=== PATIENT | female | born 1970 | race Caucasian/White ===

== ENCOUNTER → 2017-10-28 15:27 | Outpatient (CLI) | payer OTHER, SELFPAY | PROVIDERS: Family Provider Internal Medicine; PCP Internal Medicine; Visit Provider Nurse Practitioner Family | DX: R19.00 Intra-abdominal and pelvic swelling, mass and lump, unspecified site (principal); Z85.820 Personal history of malignant melanoma of skin | CPT/HCPCS: 76882 ==

== ENCOUNTER → 2019-03-08 10:03 | Outpatient (CLI) | payer OTHER, SELFPAY ==
--- NOTE | 2019-03-08 10:06 | VDLE_ITS ---
Reason For Study: RLE PAIN/SWELLING RIGHT CFV is compressible, spontaneous, phasic, competent and demonstrates normal augmentation. FV is compressible, spontaneous, phasic, competent and demonstrates normal augmentation. POP V is compressible, spontaneous, phasic, competent and demonstrates normal augmentation. T/P Trunk is compressible. PTV is compressible. RT PerV is compressible. RT GSV AND ASV X 2 are dilated and non compressible S/P EVLA. Procedure Exam performed in department. The exam was diagnostic. The study was technically difficult. PT had difficulty tolerating compressions. A preliminary report was called and/or faxed to Dr. Katz. Interpretation Summary Deep veins of the right lower extremity are patent and compressible segmentally. There is no evidence of right lower extremity deep vein thrombosis. Valvular competence appears intact within the proximal deep venous system on the right . The right great saphenous vein and two accessory saphenous veins are occluded, consistent with a recent endothermal ablation procedure. Ordering Physician: Darinel Katz Referring Physician: Laureen Salazar Performed By: Belinda Us, RDCS, RVT
== END ==
PROVIDERS: Family Provider Internal Medicine; PCP Internal Medicine; Referring Provider Surgery; Visit Provider Surgery
DX: M79.606 Pain in leg, unspecified (principal); M79.89 Other specified soft tissue disorders
CPT/HCPCS: 93971

== ENCOUNTER → 2019-11-08 15:48 | Outpatient (CLI) | payer OTHER, SELFPAY ==
--- NOTE | 2019-11-08 16:04 | VDLE_ITS ---
Reason For Study: Pain RIGHT LEFT CFV is compressible, spontaneous, phasic, GSV is normal. competent and demonstrates normal CFV is compressible, spontaneous, phasic, augmentation. competent, and demonstrates normal Procedure augmentation. Exam performed in department. FV is compressible, spontaneous, phasic, A preliminary report was called and/or faxed competent and demonstrates normal to Katheryn. augmentation. POP V is compressible, spontaneous, phasic, competent and demonstrates normal augmentation. T/P Trunk is compressible. PTV is compressible. LT PerV is compressible. Acute deep vein thrombosis is noted in the left gastroc vein. Thrombus filled varicose veins noted throughout the left mid calf. Interpretation Summary Acute deep vein thrombosis is noted in the left gastrocnemius vein. The remainder of the left lower extremity deep venous system is patent and compressible. Valvular competence appears intact within the proximal deep venous system on the left . The left great saphenous vein appears patent and compressible segmentally. Acute superficial thrombophlebitis is noted involving superficial varicosities in the left mid-calf. Ordering Physician: Laureen Salazar Referring Physician: Laureen Salazar Performed By: Yael Champion RVT
== END ==
PROVIDERS: PCP Internal Medicine; Referring Provider Internal Medicine; Visit Provider Internal Medicine
DX: M79.662 Pain in left lower leg (principal)
CPT/HCPCS: 93971

== ENCOUNTER → 2019-12-01 15:37 | Outpatient (CLI) | payer OTHER, SELFPAY ==
--- NOTE | 2019-12-01 15:55 | VDLE_ITS ---
Reason For Study: F/U DVT Procedure LEFT Exam performed in department. GSV is normal. Compared to 11/08/2019. CFV is compressible, spontaneous, phasic, A preliminary report was called and/or faxed competent, and demonstrates normal to Marie. augmentation. FV is compressible, spontaneous, phasic, competent and demonstrates normal augmentation. POP V is compressible, spontaneous, phasic, competent and demonstrates normal augmentation. T/P Trunk is compressible. PTV is compressible. LT PerV is compressible. Left Gastroc V is partially compressible with flow noted. Varicose veins in the mid calf are compressible. Interpretation Summary Acute deep vein thrombosis is noted in the left gastrocnemius vein. The remainder of the left lower extremity deep venous system is patent and compressible. Valvular competence appears intact within the proximal deep venous system on the left . The left great saphenous vein appears patent and compressible segmentally. There has been improvement in the left lower extremity deep vein thrombosis and superficial thrombophlebitis since a prior study on 11/08/2019. Ordering Physician: Laureen Salazar Referring Physician: Laureen Salazar Performed By: Yael Champion RVT
== END ==
PROVIDERS: PCP Internal Medicine; Referring Provider Internal Medicine; Visit Provider Internal Medicine
DX: I82.462 Acute embolism and thrombosis of left calf muscular vein (principal)
CPT/HCPCS: 93971

== ENCOUNTER → 2020-01-07 16:14 | Outpatient (CLI) | payer OTHER, SELFPAY ==
--- NOTE | 2020-01-07 16:28 | RAD_ITS ---
STUDY: X-RAY - CERVICAL SPINE REASON FOR EXAM: Female, 49 years old. Neck pain since yesterday, no known injury. TECHNIQUE: 5 view(s) of the cervical spine were obtained. COMPARISON: None FINDINGS: Normal anterior atlantoaxial articulation. Normal odontoid process. There is straightening of the normal cervical lordosis. Normal vertebral bodies and endplates. Normal disc space heights. Normal visualized intervertebral neuroforamina. The soft tissue structures are unremarkable. RAD/Cerv Spine 4 or 5 Views IMPRESSION: 1. No foraminal stenosis. 2. Straightening of the normal cervical lordosis could be positional artifact or related to muscular spasm. Electronically Signed: Gordo Cotton MD (Brooks) at 16:23 EDT , Service support ,
== END ==
PROVIDERS: PCP Internal Medicine; Referring Provider Nurse Practitioner; Visit Provider Nurse Practitioner
DX: M54.2 Cervicalgia (principal)
CPT/HCPCS: 72050

== ENCOUNTER → 2020-05-03 13:49 | Outpatient (CLI) | payer OTHER, SELFPAY ==
--- NOTE | 2020-05-03 13:59 | VDLE_ITS ---
Reason For Study: DVT Procedure LEFT This is a venous duplex using B-mode, color GSV is normal. flow and spectral Doppler. CFV is compressible, spontaneous, phasic, Exam performed in department. competent, and demonstrates normal A preliminary report was called and/or faxed augmentation. to Marie. FV is compressible, spontaneous, phasic, competent and demonstrates normal augmentation. POP V is compressible, spontaneous, phasic, competent and demonstrates normal augmentation. T/P Trunk is compressible. PTV is compressible. LT PerV is compressible. Lt Gastroc vein is compressible as compared to 12/01/2019. Interpretation Summary Deep veins of the left lower extremity are patent and compressible segmentally. There is no evidence of left lower extremity deep vein thrombosis. Valvular competence appears intact within the proximal deep venous system on the left . The left great saphenous vein appears patent and compressible segmentally. There has been resolution of the acute deep vein thrombosis in the left gastrocnemius vein which was noted in prior studies. Ordering Physician: Laureen Salazar Referring Physician: Laureen Salazar Performed By: Yael Champion RVT
== END ==
PROVIDERS: PCP Internal Medicine; Referring Provider Internal Medicine; Visit Provider Internal Medicine
DX: Z86.718 Personal history of other venous thrombosis and embolism (principal)
CPT/HCPCS: 93971

== ENCOUNTER → 2021-10-05 | Outpatient (CLI) | payer OTHER, SELFPAY ==
--- NOTE | 2021-10-05 | IMM_PTH ---
PATIENT: RAYMUNDO JOHN LOC: [facility] U#:[id number] AGE/SX: 50/F ROOM: RE10/05/[address]: Dr. Moncho Chu MD : 1970 BED: DIS: 10/05/2021 SPEC #: [id number] RECD: 10/08/21 11:09 STATUS: MATIAS REQ #: [id number] GEE: 10/05/21 00:[address]: Moncho Chu DEPT: IMMUNOHISTOCHEMISTRY RECD BY: Shaneka Kidd ENTERED: 10/08/21 11:10 SP TYPE: IMMUNO OTHR DR: Dr. Laureen Salazar, Tissues: Left breast, NOS Procedures: CALPONIN-1 (add) CK5-6 (add) CK8 (add) E-CAD (add) HER2 KING (add) KI-67 (add) P53 (add) NE (add) P40 (add) ER (initial) PHYSICIAN & [address] [address] SPECIMEN INFORMATION: Tissue Source: Left breast, microcalcifications, 1 o?clock position, posterior depth, stereotactic core biopsy Clinical Info: Left breast microcalcifications, 1 o?clock position, posterior depth Specimen Number: [id number] #4 CPT code: 14311, 55088 x6, 88475 x3 METHODOLOGY: Deparaffinized sections of prefer/formalin-fixed tissue or PAP/DQ stained slides are incubated with monoclonal/polyclonal antibodies/oligonucleotide probes. Localization is made via biotin free immunoperoxidase method. Appropriate controls are performed and reacted as expected. Results on target cell population are indicated in the following table: RESULTS: ANTIBODY / CLONE RESULT E-Cad (ECH-6) positive CK8 (98aznpQ67) positive Calponin-1 (GO916V) negative CK5-6 (D5 & 1684) positive, focal P40 (BC28) negative P53 (DO-7) negative Ki-67 (30-9) positive, moderate to high MORPHOMETRIC ANALYSIS ER (clone [id number]) 0% NE (clone 16/1E2) 0% Her-2Neu (clone CB11) 0 The prognostic test for HER2 is performed on formalin-fixed paraffin embedded tissue. A 3+ (positive) staining pattern is defined as intense, homogeneous, complete, circumferential membranous staining in >10% of contiguous tumor cells. A similar weak (2+) staining pattern is interpreted as equivocal. BEN follow-up testing is recommended for all equivocal cases. Positivity/negativity for ER/NE is reported if > or < 1% of the tumor cells are immuno- reactive, respectively. The ASCO/CAP criteria is used for scoring. Reference: Journal of Clinical Oncology, 2013; 31:8727-4330 & 2010; 16:0485-1007. Duration of fixation: 56.5 Hrs; Sample Adequate: Yes. These assays have not been validated on decalcified tissues. Results should be interpreted with caution given the likelihood of false negativity on decalcified specimens. These tests were developed and their performance characteristics determined by [facility]. They may not have been cleared or approved by the U.S. Food and Drug Administration. The FDA has determined that such clearance or approval is not necessary. The above immunohistochemical/dualISH markers are ordered and reviewed by the Pathologist. INTERPRETATION: Left breast, microcalcifications, 1 o?clock position, posterior depth, stereotactic core biopsy: Invasive ductal carcinoma, nuclear grade 3. Negative for estrogen receptors (unfavorable prognostic indicator). Negative for progesterone receptors (unfavorable prognostic indicator). Negative for overexpression of TOW0qsu. SJ:linden 10/09/2021
--- NOTE | 2021-10-05 11:05 | BRBX_PTH ---
PATIENT: RAYMUNDO JOHN LOC: [facility] U#:[id number] AGE/SX: 50/F ROOM: RE10/05/[address]: Dr. Moncho Chu MD : 1970 BED: DIS: 10/05/2021 SPEC #: [id number] RECD: 10/05/21 11:49 STATUS: MATIAS REDot #: [id number] GEE: 10/05/21 11:[address]: Moncho Chu DEPT: SURGICAL PATHOLOGY RECD BY: Sondra Black ENTERED: 10/05/21 12:53 SP TYPE: BREAST BX OTHR DR: Dr. Laureen Salazar, DO Tissues: Left breast, NOS Procedures: Surgery Specimen Level IV HEADER OPERATION: Left stereotactic breast biopsy PRE-OP DIAGNOSIS: Left breast microcalcifications 1 o?clock position, posterior depth TISSUE SUBMITTED: Left breast core tissue ISCHEMIC TIME: 2 minutes FIXATION TIME: 56.5 hours MICROSCOPIC DIAGNOSIS Left breast, microcalcification, 1 o?clock position, posterior depth, stereotactic core biopsy: Invasive ductal carcinoma, nuclear grade 3 (0.8 cm in greatest length). Extensive ductal carcinoma in situ. See comment. Nirmal 10/08/2021 COMMENT Ductal carcinoma in situ shows solid pattern, nuclear grade 2-3, calcifications and cancerization of lobules. Ductal carcinoma in situ comprises about 70-80% of the total tumor volume. Immunohistochemistry ([id number]) supports the above diagnosis. ER/MT/Ijz7hlc studies are being performed on sections of tumor and the results from this study will be reported separately ([id number]). MICROSCOPIC DESCRIPTION Slides are reviewed. GROSS DESCRIPTION Received in fixative is one container labeled with the patient's name and designated left breast. The specimen consists of multiple elongated fragments of gloria-yellow fibroadipose tissue that in aggregate measure 5 x 3 x 0.6 cm. The entire specimen is submitted in four cassettes. / CIPRIANO:linden 10/05/2021 TC:0 [facility]: [id number] ADDENDUM ADDENDUM ADDENDUM ADDENDUM ADDENDUM ADDENDUM ADDENDUM ADDENDUM ADDENDUM ADDENDUM ADDENDUM ADDENDUM 01/14/2022 10:45 ADDENDUM 01/14/2022 10:45 ADDENDUM 01/14/2022 10:45 ADDENDUM 01/14/2022 10:45 ADDENDUM 01/14/2022 10:45 This addendum is added to incorporate an outside pathology consultation report. The case was examined at [facility] (#[id number]) and the following diagnosis was rendered. Left breast, 1:00 posterior depth microcalcification, stereotactic core biopsy: - Invasive ductal carcinoma, provisional [place] grade 2-3, measuring 8 mm in greatest dimension. - Ductal carcinoma in situ, nuclear grade 2-3, solid and cribriform patterns. Please see complete above mentioned consultation report in EMR
--- NOTE | 2021-10-05 11:58 | PCM.HP.BLA ---
History and Physical Date of Admission: 10/05/21 HISTORY AND PHYSICAL - BREAST COMPLAINT ? Myesha Vigil 1970 ? ? REFERRING PHYSICIAN: Carolina Avila APRN.MAGNETIC RESONANCE IMAGING COORDINATOR ? CHIEF COMPLAINT: Microcalcifications of the breast (primary encounter diagnosis) ? HPI: The patient is a 50 year old female with a complaint of an abnormal mammogram. The patient had a mammogram with ultrasound on 09/04/21 which demonstrated BI-RADS Category 4 microcalcifications of her left breast located at the 1 o'clock position and in posterior depth.: ? ? The patient denies a history of breast masses. She does perform a self breast exam routinely. She notes no skin changes. She denies nipple discharge. She notes no axillary masses. She notes no family history of breast problems. She notes no significant breast trauma or breast difficulties in the past. ? ? The patient is being seen by me today at the request of Dr. Avila for my opinion and advice regarding Microcalcifications of the breast (primary encounter diagnosis). ? PAST MEDICAL HISTORY PAST MEDICAL HISTORY Diagnosis Date ? Irritable bowel syndrome ? ? Malignant melanoma (HCC) 2014 ? left leg ? ? PAST SURGICAL HISTORY PAST SURGICAL HISTORY Procedure Laterality Date ? EXCIS MALIGNANT LESION 0.6-1CM ? 10/2014 ? back left leg ? LAPAROSCOPY SURG CHOLECYSTECTOMY ? 03/15 ? Cholecystectomy, lap ? PAST SURGICAL HISTORY OF ? AGE 7 ? URETERAL DILATATION ? PAST SURGICAL HISTORY OF ? ? ? WISDOM TEETH ? ? ? CURRENT MEDICATIONS Current Outpatient Medications Medication Sig Dispense Refill ? fexofenadine HCl (NEGRO ALLERGY ORAL) Take by mouth once daily. ? ? ? spironolactone (ALDACTONE) 100 mg tablet 100 mg once daily. ? DAILY MULTIVITAMIN TAB Take by mouth once daily. ? ? 0 ? No current facility-administered medications for this visit. ? ? ALLERGIES: Sulfa (Sulfonamide Antibiotics) ? PERSONAL HISTORY: SOCIAL HISTORY Social History ? Tobacco Use ? Smoking status: Never Smoker ? Smokeless tobacco: Never Used Vaping Use ? Vaping Use: Never used Substance Use Topics ? Alcohol use: Yes ? ? Alcohol/week: 5.0 standard drinks ? ? Types: 2 Glasses of Wine (5oz) per week ? ? Comment: Rarely ? Drug use: No ? FAMILY HISTORY: FAMILY HISTORY FAMILY HISTORY Problem Relation Age of Onset ? Arthritis Mother ? ? Cancer Maternal Grandfather ? ? brain ? Diabetes Paternal Grandmother ? ? Diabetes Maternal Grandmother ? ? ? REVIEW OF SYMPTOMS: The review of systems data was entered by the nurse and reviewed by me ? Nursing Notes: Rizwana SingletonLAUREN 09/24/2021 2:27 PM Signed REVIEW OF SYSTEMS: General: The patient denies fatigue, denies weight loss, denies weight gain, denies feeling hot, and denies feelings of cold. Eyes: The patient denies glaucoma, denies eye injury/surgery, does not wear glasses or contacts. Ear/Nose/Throat: The patient notes allergies, denies hayfever, denies ear infections, and denies bloody noses. Cardiovascular: The patient denies chest pain, denies heart disease, denies high blood pressure,denies cardiac stent, denies prior heart attack, denies irregular heart beat, denies high cholesterol, denies poor circulation, denies heart failure, other cardiac issues, denies claudication, denies cold feet, denies peripheral arterial stent. Respiratory: The patient denies tuberculosis, denies pneumonia, denies frequent cough, denies pulmonary embolism, denies shortness of breath, and denies coughing up blood. Gastrointestinal: The patient denies difficulty swallowing, denies acid reflux, denies ulcers, denies vomiting, denies jaundice/hepatitis, denies gallbladder problems, denies black or tarry stools, denies hemorrhoids, denies bleeding from rectum, denies diverticulitis, denies constipation, denies diarrhea, denies loss of stool control, and denies hernias. Kidney/Bladder: The patient denies kidney stones, notes urine infections, and denies bloody urine. Skin: The patient notes a history of skin cancer, denies bleeding/changing moles, and denies a history of skin rash. Neurologic: The patient denies a history of epilepsy/convulsions, denies headaches, denies head/spinal injuries, and denies stroke/TIA. Psychiatric: The patient denies psychiatric medications, denies depression, and denies voices, denies substance abuse. Endocrine: The patient denies thyroid disorders, denies diabetes, and denies hormonal problems. Hematologic: The patient denies a history of bruising, denies bleeding, and denies anemia, denies blood clots. Infections: The patient denies a history of measles and mumps, denies rheumatic fever, and denies sexually transmitted diseases. Musculoskeletal: The patient denies back pain/injury, denies back problems, denies sciatica, denies knee/foot trouble, denies arthritis, or denies gout. ? ? When was patient's last Mammogram screening? 08/2021 ? Last Colonoscopy: 2003 ? Rizwana Singleton LPN ? PHYSICAL EXAMINATION: ? General: The patient is 50 year old female, well nourished, well hydrated in no acute distress. The patient is oriented to time, place, and person. ? VITALS: Blood pressure 98/60, pulse 68, temperature 36.8 ?C (98.3 ?F), height 154.9 cm (5' 1), weight 61.7 kg (136 lb), last menstrual period 11/10/2019, SpO2 99 %. Body mass index is 25.7 kg/m?. ? HEENT: Normal cephalic, ataumatic, pupils are equally round, sclera are anicteric, mucous membranes are moist, oropharynx is clear. Neck has no masses, asymmetry or lymphadenopathy. Thyroid is unremarkable. ? Respiratory: Clear to auscultation and percussion. Normal respiratory excursion and pattern. ? Cardiac: Examination is regular rate and rhythm. ? Abdominal exam: Soft, nontender, with no palpable masses. No hepatosplenomegaly. No palpable hernias. ? Rectal exam: exam deferred Extremities: no clubbing, cyanosis or edema. No adenopathy. ? Breast: Visual inspection reveals no retractions, nipple inversion, or skin changes. Palpation of the right breast reveals no dominant or suspicious masses, but multiple benign-feeling nodules. Palpation of the left breast reveals no dominant or suspicious masses, but multiple benign-feeling nodules. Axillary exam demonstrates no suspicious masses in either the left or right axilla. There is no nipple discharge expressed from either the left or right breast. ? LABORATORY VALUES: As Noted ? RADIOLOGIC STUDIES: As Noted ? Assessment IMPRESSION: Microcalcifications of the breast (primary encounter diagnosis) ? PLAN: I plan to perform a stereotactic biopsy of the left breast. The planned surgical procedure was discussed extensively with the patient. The risks, benefits, anticipated outcomes and possible complications were mentioned. My staff has also explained the procedure in understandable terms and the patient was given the option to take printed material concerning the planned procedure. The patient had the opportunity to ask questions concerning the planned procedure. The patient freely consents to the planned procedure. ? ? Diagnoses: (R92.0) Microcalcifications of the breast (primary encounter diagnosis) ? My findings have been communicated to Dr. Avila via shared medical record. This note will be forwarded to Dr. Laureen Salazar, DO, DO. ? Return to Clinic: The patient is instructed to follow-up with me 1 week post operatively. ? COVID (Procedure Consent) Procedure Criteria ? Procedure Criteria: Yes Elective The surgeon/proceduralist and patient have discussed in detail the risk of exposure to and/or potential harm posed by the COVID-19 virus with having a surgery/procedure at this time versus the risk of? delaying the surgery/procedure. It is not possible to know either the risk of delaying the surgery or procedure or chance of getting an infection with perfect accuracy, but a joint decision was made between the patient and the surgeon/proceduralist ?to proceed at this time with the scheduled surgery/procedure as indicated on the consent form. ? ? Moncho Chu III, MD I have re-examined the patient. There are no clinical changes since date of exam.
--- NOTE | 2021-10-05 11:59 | OP.PCM_ITS ---
Report of Operation Date of Procedure: 10/05/21 Pre-Operative Diagnosis: Microcalcifications left breast Post-Operative Diagnosis: Same Surgery/Procedure Performed:: Left stereotactic breast biopsy Surgeon: Moncho Chu cephalometric technician: None Type of Anesthesia: Local Specimen's removed: Stereotactic left breast specimen Estimated Blood Loss (mL): < 25 cc Description of Procedure: Patient was brought into the mammography unit. Placed in the supine position on the fissure table. Left breast was brought down through the opening. A lateral to medial view was obtained. Microcalcifications were identified. ?15 degree views were obtained. I targeted on the microcalcifications. I prepped the breast with Betadine. I injected 1% lidocaine plain. Skin aundrea was made. I placed a needle in the prefire position. 2 more stereotactic views were obtained. Lesion was appropriately targeted. I injected more local into the breast. I fired the needle. 360 degrees circumferential biopsies were obtained. I x-rayed my specimen microcalcifications were identified. I backed the needle off 7 mm. I placed a Gelfoam titanium clip into the wound. 2 more stereo views were obtained showing the area to be adequately targeted in the marking clip to be in place. Patient was taken out of the fissure table pressure was applied. Steri-Strips were applied. Standard mammograms were obtained. The patient tolerated the procedure well. Admit VTE Documentation VTE Present on Admission: No VTE Mechan Device Prophylaxis: None VTE Pharm Prophylaxis ordered?: No Reason prophylaxis not ordered:: Treatment Not Indicated
== END | disposition home or self-care (01) ==
PROVIDERS: PCP Internal Medicine; Visit Provider Surgery
DX: D05.12 Intraductal carcinoma in situ of left breast (principal)
CPT/HCPCS: 19081; 88305; 88341; 88342; J7050; A4648

== ENCOUNTER 2022-02-12 18:47 | Emergency (ER) | payer OTHER, SELFPAY ==
[2022-02-12 18:48] VITALS: BP 107/67; PULSE 75; RESP 18; TEMP 36.8; O2SAT 100
[2022-02-12 18:53] VITALS: BP 107/67; PULSE 75; RESP 18; TEMP 36.8; O2SAT 100
--- NOTE | 2022-02-12 19:34 | ED.RN ---
Pt requesting numbing meds to port site before accessing. Dr. Self in room. New order to apply LET to site and wait. Per Dr. Self ok to wait for 2nd set of blood cultures from port and wait to hang antibiotics.
[2022-02-12 19:35] LABS: Absolute Lymphocyte Count 0.54 X10^3/uL (0.83-4.51); Absolute Neutrophil Count 1.1 X10^3/uL (2.0-7.7); Basophil# 0.02 X10^3/uL; Basophil% 1.1 % (0-1); Eosinophil# 0.03 X10^3/uL; Eosinophils% 1.6 % (0-5); Hematocrit 24.5 % (37-47); Hemoglobin 8.3 g/dL (12.0-15.0); Lymphocyte # 0.54 X10^3/ul (0.83-4.51); Mean Corp Hgb Conc 33.9 g/dL (32-36); Mean Corpuscular Hgb 32.2 pg (27.0-32.0); Mean Platelet Vol. 9.4 fl (6.2-12.0); Monocyte# 0.19 X10^3/uL; Monocyte% 10.2 % (0-10); NRBC Flagged by Analyzer 0 % (0-5); Neutrophil # 1.07 X10^3/uL (2.7-7.7); Neutrophil % 57.6 % (47-70); POSITIVE DIFFERENTIAL YES; Platelet Count 145 K/mm3 (150-450); RBC Distribution Width CV 15.9 % (11.6-14.6); Red Blood Count 2.58 M/mm3 (4.2-5.4); White Blood Count 1.9 K/mm3 (4.4-11.0)
--- NOTE | 2022-02-12 19:40 | RAD_ITS ---
STUDY: X-RAY CHEST REASON FOR EXAM: Female, 51 years old. CHEST PAIN fever TECHNIQUE: XR Chest 2 Views COMPARISON: None FINDINGS: There is no demonstrated pleural abnormality. There is a right Port-A-Cath and/or mediport in place. The tip is in the superior vena caval - atrial junction. There is no pneumothorax. Normal size heart. Normal mediastinum and brandon. Normal visualized pulmonary arteries. Normal visualized aortic arch and descending thoracic aorta. Normal visualized thoracic spine. Normal visualized ribs, clavicles, and shoulders. There is no demonstrated abnormality of the visualized soft tissue structures of the upper abdomen. RAD/Chest PA and Lateral IMPRESSION: There are no acute findings. Electronically Signed: Dejan aWllace MD at 20:15 EST ,
--- NOTE | 2022-02-12 19:44 | EDS_ITS ---
HPI History of Present Illness Chief Complaint: Fever Informant: patient Narrative Narrative: Patient is a 51-year-old female with history of breast cancer currently on chemotherapy.She is presenting with a fever. Patient is currently on Taxol, Keytruda and carboplatin. She chemotherapy yesterday. She developed a fever last night up to 103 ?F. She has had some nasal congestion for the past week. She has had a fever this morning 11 AM. She spoke with oncology on-call, Dr. Chaney, Who recommend she take Tylenol at a lower suspicion for neutropenic fever since she just had chemotherapy yesterday. She spoke to the office today who recommend she come to the ER to be evaluated further. Patient took a home COVID test that was negative. I spoke with Dr. Gonzalez who states they wanted to make sure there is no other source of infection given the negative COVID test and also recommended a respiratory panel. They low suspicion for neutropenia at this time. Patient's main complaint states fever or stomach ache and headache. Patient have Compazine as well as Prilosec and Pepcid prior to arrival. She does not normally get any of the symptoms with chemotherapy. Denies any neck pain or stiffness. Denies any rash or acute skin changes. Denies any urinary symptoms. Denies any change in her bowel movements. [facility] Medical History Breast cancer History of melanoma Home Medications fluconazole 150 mg tablet 150 mg PO Q3D 2 doses #2 tabs 02/12/22 [Rx Last Taken Unknown] omeprazole 40 mg capsule,delayed release 40 mg PO DAILY 02/12/22 [History Last Taken Unknown] Allergy/AdvReac Type Severity Reaction Status Date / Time Sulfa (Sulfonamide Allergy Rash Verified 02/12/22 18:53 Antibiotics) Social History Smoking Status: Never smoker ROS ROS ED Constitutional Constitutional ED: Reports chills, fever(s) and sweats Eyes Eyes: Denies change in vision ENT ENT ED: Reports rhinorrhea; Denies sore throat Cardiovascular Cardiovascular: Denies chest pain or palpitations Respiratory/Chest Respiratory/Chest: Denies cough or dyspnea Gastrointestinal Gastrointestinal: Reports nausea; Denies abdominal pain, constipation, diarrhea or vomiting Genitourinary Genitourinary ED: Denies dysuria or hematuria Musculoskeletal Musculoskeletal: Denies arthralgias, myalgias or neck pain Integumentary Denies rash Neurologic Neurologic: Reports headache(s); Denies paresthesias or weakness Psychiatric Psychiatric: Denies anxiety EXAM Physical Exam Const Vital Signs: 02/12/22 18:48 02/12/22 18:53 02/12/22 18:53 Temperature 98.3 F 98.3 F Temperature Source Oral Oral Pulse Rate 75 75 Respiratory Rate 18 18 Respiratory Effort Normal Non-Labored Blood Pressure 107/67 107/67 Blood Pressure Mean 80 80 Pulse Ox 100 100 Oxygen Delivery Method Room Air Room Air 02/12/22 20:48 02/12/22 20:53 02/12/22 21:00 Temperature 98 F Temperature Source Oral Pulse Rate 78 77 76 Respiratory Rate 15 15 Respiratory Effort Blood Pressure 93/62 93/62 Blood Pressure Mean 72 72 Pulse Ox 99 99 Oxygen Delivery Method Room Air Room Air 02/12/22 22:10 Temperature Temperature Source Pulse Rate 79 Respiratory Rate 15 Respiratory Effort Blood Pressure 95/67 Blood Pressure Mean Pulse Ox 99 Oxygen Delivery Method Positive well nourished and well developed General Appearance ED: well developed and NAD HEENT Reports moist mucous membranes Eyes PERRL and EOMs intact bilaterally Neck supple and no JVD Chest Wall inspection of chest normal and palpation of chest normal Chest Narrative: Port palpated in the right anterior chest wall.Overlying erythema or tenderness to palpation. Resp normal respiratory effort and clear to auscultation bilaterally Cardio regular rate, regular rhythm and no murmurs GI normal to inspection, nondistended, normoactive bowel sounds and non-tender Back/Spine no CVA tenderness Extremity normal to inspection General Extremety ED: Negative for edema or tenderness General Extremity: Negative for edema Neuro oriented x3 Neuro Narrative: No focal deficits appreciated Sensorium / Orientation: alert Motor Exam: general weakness Skin no rashes or lesions noted and no wounds MDM MDM MDM Narrative Medical decision making narrative: Patient is evaluated for fever. Patient is currently on chemotherapy and had her last session yesterday. She was sent in for respiratory panel and work-up for other source of fever she had a negative home COVID test. Patient is afebrile currently. She is given a dose of cefepime in the ER she is leukopenic however her absolute neutral count is 1.1 so she is not a true neutropenic fever. CMP, lactate and urinalysis are normal. Chest x-ray interpreted by myself as well as radiology does not show any acute process. COVID/flu test are negative here. Respiratory panel is pending. Case is discussed with Dr. Chaney, who is agreeable with further outpatient follow-up. Cultures are pending. Patient is nonseptic appearing. She will continue to follow-up with her oncologist. She is given a prescription for fluconazole as she tends to get yeast infections after antibiotics. Patient is discharged home in stable condition. Is given return precautions. Lab Data Attestation: I reviewed the patient's lab results. Labs: Laboratory Results - last 24 hr 02/12/22 02/12/22 02/12/22 19:25 19:25 19:25 WBC 1.9 L RBC 2.58 L Hgb 8.3 L Hct 24.5 L MCV 95.0 MCH 32.2 H MCHC 33.9 RDW Std Deviation 55.0 H RDW Coeff of Farhad 15.9 H Plt Count 145 L MPV 9.4 Immature Gran % (Auto) 0.500 Neut % (Auto) 57.6 Lymph % (Auto) 29.0 [place] % (Auto) 10.2 H Eos % (Auto) 1.6 Baso % (Auto) 1.1 H Absolute Neuts (auto) 1.1 L Absolute Lymphs (auto) 0.54 L Nucleated RBC % 0 Differential Comment SCANNED Diff Path Review May foll Sodium 138 Potassium 3.6 Chloride 106 Carbon Dioxide 29.0 Anion Gap 3 L BUN 8 Creatinine 0.81 Estim Creat Clear Calc 70.16 Est GFR (MDRD) Af Amer 96 Est GFR (MDRD) Non-Af 79 BUN/Creatinine Ratio 9.8 L Glucose 117 H Lactic Acid 0.6 Calcium 8.6 Total Bilirubin 0.70 AST 43 H ALT 49 Alkaline Phosphatase 59 Total Protein 7.1 Albumin 3.4 Globulin 3.7 Albumin/Globulin Ratio 0.9 Urine Color Urine Clarity Urine pH Ur Specific [place] Urine Protein Urine Glucose (UA) Urine Ketones Urine Occult Blood Urine Nitrite Urine Bilirubin Urine Urobilinogen Ur Leukocyte Esterase Urine RBC Urine WBC Ur Squamous Epith Cells Urine Bacteria Urine Mucus 02/12/22 20:08 WBC RBC Hgb Hct MCV MCH MCHC RDW Std Deviation RDW Coeff of Farhad Plt Count MPV Immature Gran % (Auto) Neut % (Auto) Lymph % (Auto) [place] % (Auto) Eos % (Auto) Baso % (Auto) Absolute Neuts (auto) Absolute Lymphs (auto) Nucleated RBC % Differential Comment Diff Path Review Sodium Potassium Chloride Carbon Dioxide Anion Gap BUN Creatinine Estim Creat Clear Calc Est GFR (MDRD) Af Amer Est GFR (MDRD) Non-Af BUN/Creatinine Ratio Glucose Lactic Acid Calcium Total Bilirubin AST ALT Alkaline Phosphatase Total Protein Albumin Globulin Albumin/Globulin Ratio Urine Color Yellow Urine Clarity Clear Urine pH 6.5 Ur Specific [place] 1.010 Urine Protein Negative Urine Glucose (UA) Normal Urine Ketones Negative Urine Occult Blood Negative Urine Nitrite Negative Urine Bilirubin Negative Urine Urobilinogen Normal Ur Leukocyte Esterase 25 H Urine RBC 0 SEEN Urine WBC 0-5 SEEN Ur Squamous Epith Cells 0 SEEN Urine Bacteria 0 SEEN Urine Mucus 0 SEEN Radiography Diagnostic Testing: Clinical Impression(s) from Imaging Studies Chest X-Ray 02/12/22 19:40 IMPRESSION: There are no acute findings. Electronically Signed: Dejan Wallace MD at 20:15 EST Reading Location ID and State: [facility] / [place] , Service support , Discharge Plan Triage Chief Complaint: Fever ED Provider: Neida Self Dx/Rx/DC Orders Clinical Impression: Fever of unknown origin (FUO), Breast cancer, Leukopenia, Anemia Instructions: ED FUO Adult Prescriptions: New fluconazole 150 mg tablet 150 mg PO Q3D Qty: 2 0RF No Action omeprazole [Prilosec] 40 mg Capsule,Delayed Release(Dr/Ec) 40 mg PO DAILY Primary Care Provider: Laureen Salazar Referrals: Laureen Salazar DO [Primary Care Provider] - Marcos Nelson DO [Med Staff - Active Staff] - 1 Day for another exam Activity Restrictions/Additional Instructions: Your respiratory panel and cultures are pending. The exact cause of your fever is not clear. Please follow-up with your oncologist. He did receive a dose of antibiotics today. Disposition Disposition: Home, Self Care Discharge Date/Time: 02/12/22 22:10
[2022-02-12 19:49] LABS: Differential Indicated SCAN CRITERIA MET
[2022-02-12 19:57] LABS: ALB/GLOB Ratio 0.9 RATIO (0.9-2.4); AST(SGOT) 43 U/L (15-37); Alanine Aminotransfer ALT/SGPT 49 U/L (13-56); Albumin, Serum 3.4 g/dL (3.2-5.0); Alkaline Phosphatase 59 U/L (45-117); Anion Gap 3 (5-15); BUN 8 mg/dL (7-18); BUN/Creat Ratio 9.8 RATIO (10-20); Calcium,Total 8.6 mg/dL (8.5-10.1); Chloride 106 mmol/L (98-107); Creatinine, Serum 0.81 mg/dL (0.55-1.02); EST Glomerular Filtration Rate 79 mL/min (>60); Est Glom Filt Rate - Afr Amer 96 mL/min (>60); Estimated Creatinine Clearance 70.16 ml/min; Globulin 3.7 g/dL (2.2-4.2); Glucose 117 mg/dL (74-106); Potassium 3.6 mmol/L (3.5-5.1); Protein, Total 7.1 g/dL (6.4-8.2); Sodium Level 138 mmol/L (136-145)
[2022-02-12 20:02] LABS: Lactic Acid 0.6 mmol/L (0.4-1.9)
[2022-02-12 20:14] LABS: Differential Comment SCANNED
[2022-02-12 20:16] LABS: Bacteria 0 SEEN /hpf (None Seen); Mucous, Urine 0 SEEN /hpf (<or=2+); Red Blood Cells-Urine 0 SEEN /hpf (0-5); Squamous Epithelial Cells - UA 0 SEEN /hpf (5-10)
[2022-02-12 20:20] LABS: Color, Urine Yellow (Yellow); Glucose, Dipstick Normal (Normal); Ketone-Dipstick Negative (Negative); Leukocyte Esterase-Dipstick 25 /ul (Negative); Nitrite-Dipstick Negative (Negative); Occult Blood-Urine Negative /ul (Negative); Protein-Dipstick Negative (Negative); Urine Bilirubin Dipstick Negative (Negative); Urine Clarity Clear (Clear); Urine Urobilinogen Normal (Normal); Urine pH 6.5 (5.0 - 8.0)
[2022-02-12 20:35] LABS: White Blood Cells 0-5 SEEN /hpf (0-5)
[2022-02-12 20:48] VITALS: BP 93/62; PULSE 78; RESP 15; O2SAT 99
[2022-02-12 20:53] VITALS: BP 93/62; PULSE 77; RESP 15; TEMP 36.6; O2SAT 99
[2022-02-12 21:00] VITALS: PULSE 76
[2022-02-12 22:10] VITALS: BP 95/67; PULSE 79; RESP 15; O2SAT 99
[2022-02-13 13:03] LABS: Pathologist Review Reviewed
== END 2022-02-12 22:10 | disposition home or self-care (01) ==
PROVIDERS: Emergency Provider Emergency Medicine; PCP Internal Medicine; Visit Provider Emergency Medicine
DX: R50.9 Fever, unspecified (principal); C50.919 Malignant neoplasm of unspecified site of unspecified female breast; R09.81 Nasal congestion; Z20.822 Contact with and (suspected) exposure to COVID-19; D64.9 Anemia, unspecified; D72.819 Decreased white blood cell count, unspecified; Z79.899 Other long term (current) drug therapy; Z85.820 Personal history of malignant melanoma of skin
CPT/HCPCS: 71046; 80053; 81001; 83605; 85025; 87040; 87077; 87086; 87088; 87186; 87428; 87633; 96365; 99284; J7030; J7050; A4216

== ENCOUNTER 2022-06-08 11:17 | Emergency (ER) | payer OTHER, SELFPAY ==
[2022-06-08 11:18] VITALS: BP 107/70; PULSE 103; RESP 14; TEMP 36.4; O2SAT 100; BMI 26.4
--- NOTE | 2022-06-08 11:31 | RAD_ITS ---
HISTORY: fever. TECHNIQUE: XR Chest 1 View. COMPARISON: 02/12/2022. FINDINGS: CARDIOMEDIASTINAL BORDERS: Cardiac silhouette within normal limits in size. Mediastinal contour unremarkable. Right chest wall port with catheter tip at the superior cavoatrial junction again seen LUNGS: Radiographically clear. PLEURA: No pleural effusion or pneumothorax seen. OSSEOUS STRUCTURES: Unremarkable. RAD/Chest 1 View (Portable) IMPRESSION: No acute cardiopulmonary process identified. Electronically Signed: Katie Valero MD at 13:25 EDT ,
--- NOTE | 2022-06-08 11:33 | EX.ED.DYSGE1 ---
HPI History of Present Illness Chief Complaint: Fever Detail of Chief Complaint: Fever Informant: patient Narrative Narrative: Patient presents with a fever that started 2 days ago. Temperature as high as 102 last night. Patient describes just some mild urinary urgency. She denies dysuria or hematuria. She denies cough or sore throat. She denies vomiting or diarrhea. Patient currently being treated for breast cancer last chemotherapy was 11 days ago. Patient had Neulasta 10 days ago. Patient discussed case with her oncologist and was advised to come to the ER to be evaluated today. Patient had a UTI several weeks ago and saw urologist and was told that after treatment her urinary tract infection had cleared but that she may have some irritation to her bladder from the chemo and he prescribed a medication for that and she had been doing relatively well. [facility] Medical History Breast cancer History of melanoma Home Medications fluconazole 150 mg tablet 150 mg PO Q3D 2 doses #2 tabs 02/12/22 [Rx Last Taken Unknown] omeprazole 40 mg capsule,delayed release 40 mg PO DAILY 02/12/22 [History Last Taken Unknown] Allergy/AdvReac Type Severity Reaction Status Date / Time Sulfa (Sulfonamide Allergy Rash Verified 06/08/22 11:21 Antibiotics) Social History Smoking Status: Never smoker ROS ROS ED Review of Systems ROS Unobtainable: other Constitutional Constitutional ED: Reports fever(s) and lethargy; Denies chills, sweats or weight loss Eyes Eyes: Denies blurry vision, change in vision or diplopia ENT ENT ED: Denies rhinorrhea or sore throat Cardiovascular Cardiovascular: Denies chest pain, orthopnea or racing heartbeat Respiratory/Chest Respiratory/Chest: Denies cough, dyspnea, dyspnea on exertion, orthopnea or sputum Gastrointestinal Gastrointestinal: Denies abdominal pain, diarrhea, nausea or vomiting Genitourinary Genitourinary ED: Denies dysuria, hematuria or urinary frequency Musculoskeletal Musculoskeletal: Denies arthralgias, back pain, myalgias or neck pain Integumentary Denies abscess, Abrasions or rash Neurologic Neurologic: Denies headache(s) or weakness Psychiatric Psychiatric: Denies anxiety, depression or suicidal thoughts Endocrine Endocrinology: Denies polydipsia, polyphagia or polyuria Hematologic/Lymphatic Hematologic/Lymphatic: Denies easy bleeding, easy bruising or lymphadenopathy Allergic/Immunologic Allergic/Immunologic ED: Denies mouth swelling, tongue swelling or urticaria EXAM Physical Exam Const Vital Signs: 06/08/22 11:18 06/08/22 13:51 Temperature 97.5 F L Temperature Source Temporal Pulse Rate 103 H 71 Respiratory Rate 14 15 Blood Pressure 107/70 138/67 H Blood Pressure Mean 82 90 Pulse Ox 100 98 Oxygen Delivery Method Room Air Room Air Positive well nourished and well developed General Appearance ED: well developed and NAD HEENT Reports TM's clear and moist mucous membranes normocephalic and atraumatic; Negative for trauma or tenderness Tympanic Membrane ED: Yes TM's clear Eyes PERRL and EOMs intact bilaterally General Eye ED: Negative for pale conjunctiva or scleral icterus Neck no lymphadenopathy, supple and no JVD General: Negative for tenderness Chest Wall inspection of chest normal and palpation of chest normal Chest: Negative for tenderness Resp normal respiratory effort and clear to auscultation bilaterally Effort and Inspection: Negative for respiratory distress or pain with movement Auscultation: Negative for rhonchi, wheezes or diminished lung sounds Cardio regular rate, regular rhythm, S1 normal heart sound, S2 normal heart sound and no murmurs Peripheral Pulses: pulses 2+ throughout GI normal to inspection, nondistended, normoactive bowel sounds, soft to palpation, non-tender, non-distended and no masses Back/Spine no CVA tenderness and no thoracic nor lumbar tenderness Extremity normal to inspection General Extremety ED: Negative for edema General Extremity: Negative for edema Neuro oriented x3, CN's II-XII intact bilaterally, no sensory deficits noted and gait normal Sensorium / Orientation: awake, alert, oriented to person, oriented to place and oriented to time Motor Exam: strength 5/5 throughout and strength abnormal Psych mental status grossly normal Skin no rashes or lesions noted and no wounds MDM MDM MDM Narrative Medical decision making narrative: IV line established on arrival. On presentation etiology of fever unclear. Blood work obtained showed a white count 7.5 with hemoglobin of 7.4 platelet count of 112. Patient had absolute neutrophil count of 5.9. And 73% segmented neutrophils. Chemistries unremarkable. Lactate was normal 1.2. Urinalysis was normal. COVID and flu testing negative. Chest x-ray was unremarkable. At this time etiology of her fever unclear. She is afebrile in the department. Lab Data Attestation: I reviewed the patient's lab results. Labs: Laboratory Results - last 24 hr 06/08/22 06/08/22 06/08/22 12:29 12:29 12:29 WBC 7.5 RBC 2.51 L Hgb 7.4 L Hct 22.4 L MCV 89.2 MCH 29.5 MCHC 33.0 RDW Std Deviation 42.6 RDW Coeff of Farhad 13.2 Plt Count 112 L MPV 9.8 Neut % (Auto) Not Reportable Absolute Neuts (auto) 5.9 Absolute Lymphs (auto) 1.01 Total Counted 100 Neutrophils % (Manual) 73 H Band Neutrophils % 5 Lymphocytes % (Manual) 13 L Monocytes % (Manual) 4 Metamyelocytes % 2 H Myelocytes % 3 H Diff Path Review May foll Platelet Estimate ADEQUATE RBC Morphology NORM C+C Sodium 137 Potassium 3.4 L Chloride 106 Carbon Dioxide 26.0 Anion Gap 5 BUN 17 Creatinine 1.15 H Estim Creat Clear Calc 44.65 Est GFR (MDRD) Af Amer 64 Est GFR (MDRD) Non-Af 53 L BUN/Creatinine Ratio 14.8 Glucose 102 Lactic Acid 1.2 Calcium 8.8 Urine Color Urine Clarity Urine pH Ur Specific [place] Urine Protein Urine Glucose (UA) Urine Ketones Urine Occult Blood Urine Nitrite Urine Bilirubin Urine Urobilinogen Ur Leukocyte Esterase Urine RBC Urine WBC Ur Squamous Epith Cells Urine Bacteria Urine Mucus 06/08/22 12:30 WBC RBC Hgb Hct MCV MCH MCHC RDW Std Deviation RDW Coeff of Farhad Plt Count MPV Neut % (Auto) Absolute Neuts (auto) Absolute Lymphs (auto) Total Counted Neutrophils % (Manual) Band Neutrophils % Lymphocytes % (Manual) Monocytes % (Manual) Metamyelocytes % Myelocytes % Diff Path Review Platelet Estimate RBC Morphology Sodium Potassium Chloride Carbon Dioxide Anion Gap BUN Creatinine Estim Creat Clear Calc Est GFR (MDRD) Af Amer Est GFR (MDRD) Non-Af BUN/Creatinine Ratio Glucose Lactic Acid Calcium Urine Color Yellow Urine Clarity Clear Urine pH 6.0 Ur Specific [place] 1.005 Urine Protein 15 H Urine Glucose (UA) Normal Urine Ketones Negative Urine Occult Blood 10 H Urine Nitrite Negative Urine Bilirubin Negative Urine Urobilinogen Normal Ur Leukocyte Esterase 25 H Urine RBC 0-5 SEEN Urine WBC 0-5 SEEN Ur Squamous Epith Cells 0 SEEN Urine Bacteria 0 SEEN Urine Mucus 0 SEEN Radiography Diagnostic Testing: Clinical Impression(s) from Imaging Studies Chest X-Ray 06/08/22 11:31 IMPRESSION: No acute cardiopulmonary process identified. Electronically Signed: Katie Valero MD at 13:25 EDT Reading Location ID and State: [facility] / [place] Tel , Service support , 1 view chest x-ray obtained interpreted by myself no acute disease process with no evidence of infiltrate or pneumothorax.. Radiology in agreement. Discharge Plan Triage Chief Complaint: Fever ED Provider: Odilon Guzman Dx/Rx/DC Orders Clinical Impression: Fever of unknown origin (FUO) Instructions: ED FUO Adult Prescriptions: No Action omeprazole [Prilosec] 40 mg Capsule,Delayed Release(Dr/Ec) 40 mg PO DAILY fluconazole 150 mg tablet 150 mg PO Q3D Qty: 2 0RF Primary Care Provider: Laureen Salazar Referrals: Laureen Salazar DO [Primary Care Provider] - Marcos Nelson DO [Med Staff - Active Staff] - 3-5 Days Disposition Disposition: Home, Self Care
[2022-06-08] MEDS: 0.9% Normal Saline 1,000 ML 150 ML IV (12:37)
[2022-06-08 12:51] LABS: Hematocrit 22.4 % (37-47); Hemoglobin 7.4 g/dL (12.0-15.0); Mean Corpuscular Hgb 29.5 pg (27.0-32.0); Mean Corpuscular Volume 89.2 fL (81-99); Mean Platelet Vol. 9.8 fl (6.2-12.0); POSITIVE COUNT YES; POSITIVE MORPHOLOGY YES; Platelet Count 112 K/mm3 (150-450); RBC Distribution Width CV 13.2 % (11.6-14.6); RBC Distribution Width SD 42.6 fl (35.1-43.9); Red Blood Count 2.51 M/mm3 (4.2-5.4); White Blood Count 7.5 K/mm3 (4.4-11.0)
[2022-06-08 12:53] LABS: Differential Indicated MANUAL DIFF
[2022-06-08 13:04] LABS: Bacteria 0 SEEN /hpf (None Seen); Mucous, Urine 0 SEEN /hpf (<or=2+); Squamous Epithelial Cells - UA 0 SEEN /hpf (5-10)
[2022-06-08 13:10] LABS: Anion Gap 5 (5-15); BUN 17 mg/dL (7-18); BUN/Creat Ratio 14.8 RATIO (10-20); Calcium,Total 8.8 mg/dL (8.5-10.1); Chloride 106 mmol/L (98-107); Creatinine, Serum 1.15 mg/dL (0.55-1.02); EST Glomerular Filtration Rate 53 mL/min (>60); Est Glom Filt Rate - Afr Amer 64 mL/min (>60); Estimated Creatinine Clearance 44.65 ml/min; Glucose 102 mg/dL (74-106); Potassium 3.4 mmol/L (3.5-5.1); Sodium Level 137 mmol/L (136-145)
[2022-06-08 13:13] LABS: Color, Urine Yellow (Yellow); Glucose, Dipstick Normal (Normal); Ketone-Dipstick Negative (Negative); Leukocyte Esterase-Dipstick 25 /ul (Negative); Nitrite-Dipstick Negative (Negative); Occult Blood-Urine 10 /ul (Negative); Protein-Dipstick 15 mg/dl (Negative); Specific Gravity, Urine 1.005 (1.002-1.030); Urine Bilirubin Dipstick Negative (Negative); Urine Clarity Clear (Clear); Urine Urobilinogen Normal (Normal)
[2022-06-08 13:13] LABS: Lactic Acid 1.2 mmol/L (0.4-1.9)
[2022-06-08 13:24] LABS: Red Blood Cells-Urine 0-5 SEEN /hpf (0-5); White Blood Cells 0-5 SEEN /hpf (0-5)
[2022-06-08 13:51] VITALS: BP 138/67; PULSE 71; RESP 15; O2SAT 98
[2022-06-08 13:52] LABS: Neutrophil-Band 5 % (0-5); Neutrophil-Segmented 73 % (47-70); Total Cells Counted 100 (MANUAL DIFF)
[2022-06-08 13:53] LABS: Lymphocyte 13 % (19-41); Metamyelocyte 2 % (0-1); Monocyte 4 % (0-10); Myelocyte 3 % (0-0)
[2022-06-08 13:54] LABS: Absolute Neutrophil Count 5.9 X10^3/uL (2.0-7.7)
[2022-06-08 13:55] LABS: Absolute Lymphocyte Count 1.01 X10^3/uL (0.83-4.51); Platelet Estimate ADEQUATE (ADEQ); Red Cell Morphology NORM C+C NORMAL (NORM C&C)
[2022-06-10 13:08] LABS: Pathologist Review Reviewed
== END 2022-06-08 14:25 | disposition home or self-care (01) ==
PROVIDERS: Emergency Provider Emergency Medicine; PCP Internal Medicine; Visit Provider Emergency Medicine
DX: R50.9 Fever, unspecified (principal); C50.919 Malignant neoplasm of unspecified site of unspecified female breast; Z20.822 Contact with and (suspected) exposure to COVID-19; Z92.21 Personal history of antineoplastic chemotherapy
CPT/HCPCS: 36591; 71045; 80048; 81001; 83605; 85025; 87040; 87086; 87428; 87633; 96360; 96361; 99281; J7030; A4216